=== PATIENT | female | born 1990 | race American Indian/Alaskan Native ===

== ENCOUNTER 2016-12-30 23:50 | Inpatient (IN) | payer MEDICAID ==
[2016-12-31] MEDS ORDERED: LACTATED RINGERS 1,000 ML ONE ×2 (00:06→20:55)
[2016-12-31] MEDS ORDERED: BRETHINE ONE (00:23)
[2016-12-31] MEDS ORDERED: LACTATED RINGERS 1,000 ML IV ONE ×2 (00:31→20:55)
[2016-12-31] MEDS ORDERED: CELESTONE SOLUSPAN IM ONE ×2 (00:41→00:47)
[2016-12-31] MEDS ORDERED: MAGNESIUM SULFATE 4GM/100ML 4 GM/100 ML BAG IV ONE ×2 (00:41→00:53)
[2016-12-31] MEDS ORDERED: MAGNESIUM SULFATE 40GM/1000ML 40 GM/1,000 ML BAG IV ONE (00:41)
--- NOTE | 2016-12-31 00:56 | History and Physical Report ---
History of Present Illness Date of examination: 12/31/16 Chief complaint: Contractions 2 hours History of present illness: 26-year-old at 31 weeks (via oral hx) presents with above complaints and issues, she is a drop-in patient with care at an outside facility. She complains care has been complicated by previous history of delivery 3. Gives a history of being seen by MFM, not on 17 HP. Patient also belatedly claims that she has not seen her doctor for 1-2 months now (?Dr Collette Stevenson at [facility] [place] she felt that they were not given her adequate care. This is complicated by twin gestation, patient claims they are diamniotic dichorionic. 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 denies: chlamydia, gonorrhea, hepatitis B, hepatitis C, herpes, HIV, syphilis Social history: single, full code. denies: smoking, alcohol abuse, prescription drug abuse - Obstetrical History Expected Date of Delivery: 03/04/17 Actual Gestation: 31 Week(s) 0 Day(s) : 5 Para: 3 Hx # Term Pregnancies: 0 Number of Pregnancies: 3 Medications and Allergies Allergies Allergy/AdvReac Type Severity Reaction Status Date / Time amoxicillin Allergy Hives Verified 12/31/16 00:44 butorphanol tartrate Allergy blisters Verified 12/31/16 00:59 [From Stadol] Penicillins Allergy Hives Verified 12/31/16 00:44 Home Medications Medication Instructions Recorded Confirmed Last Taken Type No Known Home Medications [No 12/31/16 12/31/16 Unknown History Reported Home Medications] Active Meds: Active Medications Betamethasone Acet/Betameth SodPhos (Celestone Soluspan) 12 mg IM ONCE ONE Stop: 12/31/16 00:48 Lactated Ringer's (Lactated Ringers) 1,000 mls @ 999 mls/hr IV BOLUS ONE Stop: 12/31/16 01:31 Terbutaline Sulfate (Brethine) 0.25 mg SUB-Q Q20MIN TERENCE Stop: 01/02/17 01:01 Review of Systems Constitutional: no fever, no chills, no sweats Cardiovascular: no chest pain, no orthopnea, no edema, no syncope, no lightheadedness, no shortness of breath, no dyspnea on exertion, no paroxysmal nocturnal dyspnea Respiratory: no excessive sputum, no shortness of breath, no dyspnea on exertion Gastrointestinal: abdominal pain (painful contractions), no vomiting, no diarrhea Genitourinary: no vaginal bleeding, no vaginal discharge, no leakage of fluid - Vital Signs Vital signs: Vital Signs Pulse Pulse Ox 163 H 76 L 12/30/16 23:59 12/30/16 23:59 Temp Pulse Resp BP Pulse Ox 112 H 128/71 100 12/31/16 00:35 12/31/16 00:12 12/31/16 00:35 - Physical Exam Cardiovascular: Regular rate, Normal S1, Normal S2 Lungs: Positive: Clear to auscultation, Normal air movement Abdomen: Positive: normal appearance, soft. Negative: distention, tenderness, guarding, rigidity Genitourinary (Female): Positive: normal external genitalia Uterus: Positive: enlarged (EFW ~ 3200) Adnexa: both: normal - Obstetrical FHR: category 1 (x 2) Cervical Dilatation: 3 Results Result Diagrams: 12/31/16 00:30 All other labs normal. Assessment and Plan A: 26-year-old at 31 weeks with contractions -Di Di twins P: -Sono for presentation -Magnesium tocolysis -Celestone course -Labs including UDS, routine and -Consent signed for possible - Patient Problems (1) 31 weeks gestation of Current Visit: Yes Status: Acute (2) Twin gestation in third trimester Current Visit: Yes Status: Acute Qualifiers: Multiple gestation type: M (3) contractions Current Visit: Yes Status: Acute (4) Limited care Current Visit: Yes Status: Acute Qualifiers: Trimester: T
[2016-12-31] MEDS ORDERED: BRETHINE SUB-Q SCH (01:00)
[2016-12-31 01:02] LABS: Urine Drugs of Abuse Note Disclamer
[2016-12-31] MEDS: MAGNESIUM SULFATE 40GM/1000ML 40 GM/1,000 ML BAG IV SCH ×2 (01:11→21:01)
[2016-12-31] MEDS ORDERED: SUBLIMAZE ONE (01:27)
[2016-12-31] MEDS ORDERED: SUBLIMAZE IV ONE (01:36)
[2016-12-31 01:46] LABS: Hematocrit 32.5 % (30.3-42.9); Hemoglobin 10.8 gm/dl (10.1-14.3); Mean Corpuscular HGB Conc 33 % (30-34); Mean Corpuscular Hemoglobin 29 pg (28-32); Mean Corpuscular Volume 89 fl (79-97); Platelet Count 137 K/mm3 (140-440); Red Blood Count 3.66 M/mm3 (3.65-5.03); Red Cell Distribution Width 12.9 % (13.2-15.2); White Blood Count 12.2 K/mm3 (4.5-11.0)
[2016-12-31 01:50] LABS: Bilirubin,Urine NEG (Negative); Blood,Urine SM (Negative); Ketones,Urine NEG (Negative); Leukocyte Esterase,Urine NEG (Negative); Mucus,Urine FEW /HPF; Nitrite,Urine NEG (Negative); Urobilinogen,Urine < 2.0 mg/dL (<2.0)
[2016-12-31 02:12] LABS: HIV-1 Antigen p24 Non React (Non React); HIVR-1/2 Ab Non React (Non React)
[2016-12-31] MEDS ORDERED: LACTATED RINGERS 1,000 ML IV SCH (03:00)
[2016-12-31] MEDS: SUBLIMAZE IV PRN ×5 (03:53→21:28)
--- NOTE | 2016-12-31 06:21 | Progress Note ---
Assessment and Plan A: 26-year-old at 31 weeks with contractions -Cat 1 tracing x 2 Issues -Di Di twins -s/p BMZ # 1 (00:40 on 12/31/16) -Breech/Breech presentation -Limited care P: -NPO for now -Expectant management for now (at least until ~ 12 hrs after BMZ shot) -Has been consented for - Patient Problems (1) 31 weeks gestation of Current Visit: Yes Status: Acute (2) Twin gestation in third trimester Current Visit: Yes Status: Acute Qualifiers: Multiple gestation type: M (3) contractions Current Visit: Yes Status: Acute (4) Limited care Current Visit: Yes Status: Acute Qualifiers: Trimester: T Subjective - Subjective Date of service: 12/31/16 Principal diagnosis: Di Di twins at 31+0 wks, PTL Interval history: Patient currently on magnesium per protocol, still having contractions but exam unchanged at 3-4 cm with posterior cervix Patient reports: new complaints, movement normal, contractions, no loss of fluid, no vaginal bleeding Objective - Vital Signs Vital Signs: Vital Signs - 12hr 12/30/16 12/31/16 12/31/16 23:59 00:12 00:35 Temperature Pulse Rate 163 H 109 H 112 H Respiratory Rate Blood Pressure 128/71 O2 Sat by Pulse 76 L 100 Oximetry 12/31/16 12/31/16 12/31/16 00:51 00:53 01:06 Temperature 98.4 F Pulse Rate 110 H 112 H Respiratory 16 Rate Blood Pressure 135/72 137/63 O2 Sat by Pulse Oximetry 12/31/16 12/31/16 12/31/16 01:21 01:35 01:39 Temperature Pulse Rate 118 H 110 H 112 H Respiratory Rate Blood Pressure 145/79 124/65 O2 Sat by Pulse 96 Oximetry 12/31/16 12/31/16 12/31/16 01:40 01:44 01:45 Temperature Pulse Rate 113 H 122 H Respiratory 20 Rate Blood Pressure O2 Sat by Pulse 97 97 Oximetry 12/31/16 12/31/16 12/31/16 01:50 01:55 02:00 Temperature Pulse Rate 106 H 119 H 105 H Respiratory Rate Blood Pressure O2 Sat by Pulse 97 98 96 Oximetry 12/31/16 12/31/16 12/31/16 02:05 02:10 02:15 Temperature Pulse Rate 106 H 113 H 107 H Respiratory Rate Blood Pressure O2 Sat by Pulse 99 100 99 Oximetry 12/31/16 12/31/16 12/31/16 02:20 02:23 02:25 Temperature Pulse Rate 109 H 95 H Respiratory 18 Rate Blood Pressure O2 Sat by Pulse 100 100 Oximetry 12/31/16 12/31/16 12/31/16 02:30 02:35 02:40 Temperature Pulse Rate 102 H 103 H 107 H Respiratory Rate Blood Pressure O2 Sat by Pulse 100 100 100 Oximetry 12/31/16 12/31/16 12/31/16 02:45 02:50 02:55 Temperature Pulse Rate 104 H 99 H 95 H Respiratory Rate Blood Pressure O2 Sat by Pulse 100 100 98 Oximetry 12/31/16 12/31/16 12/31/16 02:57 03:00 03:05 Temperature Pulse Rate 96 H 102 H 106 H Respiratory Rate Blood Pressure 117/71 O2 Sat by Pulse 98 99 Oximetry 12/31/16 12/31/16 12/31/16 03:10 03:15 03:20 Temperature Pulse Rate 96 H 103 H 96 H Respiratory Rate Blood Pressure O2 Sat by Pulse 98 97 99 Oximetry 12/31/16 12/31/16 12/31/16 03:25 03:30 03:35 Temperature Pulse Rate 101 H 102 H 104 H Respiratory Rate Blood Pressure O2 Sat by Pulse 97 96 99 Oximetry 12/31/16 12/31/16 12/31/16 03:40 03:45 03:50 Temperature Pulse Rate 96 H 99 H 95 H Respiratory Rate Blood Pressure O2 Sat by Pulse 100 99 98 Oximetry 12/31/16 12/31/16 12/31/16 03:55 03:56 04:00 Temperature Pulse Rate 96 H 98 H 102 H Respiratory Rate Blood Pressure 104/57 O2 Sat by Pulse 99 99 Oximetry 12/31/16 12/31/16 12/31/16 04:05 04:10 04:15 Temperature 98.1 F Pulse Rate 98 H 94 H 86 Respiratory 20 Rate Blood Pressure O2 Sat by Pulse 99 100 100 Oximetry 12/31/16 12/31/16 12/31/16 04:20 04:25 04:30 Temperature Pulse Rate 85 87 92 H Respiratory Rate Blood Pressure O2 Sat by Pulse 98 98 96 Oximetry 12/31/16 12/31/16 12/31/16 04:34 04:35 04:40 Temperature Pulse Rate 92 H 92 H 88 Respiratory Rate Blood Pressure O2 Sat by Pulse 94 95 97 Oximetry 12/31/16 12/31/16 12/31/16 04:45 04:50 04:55 Temperature Pulse Rate 92 H 92 H 90 Respiratory Rate Blood Pressure O2 Sat by Pulse 95 95 94 Oximetry 12/31/16 12/31/16 12/31/16 04:57 05:00 05:05 Temperature Pulse Rate 90 89 89 Respiratory Rate Blood Pressure 111/69 O2 Sat by Pulse 97 98 Oximetry 12/31/16 12/31/16 12/31/16 05:10 05:15 05:20 Temperature Pulse Rate 98 H 89 83 Respiratory 18 Rate Blood Pressure O2 Sat by Pulse 98 98 97 Oximetry 12/31/16 12/31/16 12/31/16 05:25 05:30 05:35 Temperature Pulse Rate 97 H 85 94 H Respiratory Rate Blood Pressure O2 Sat by Pulse 99 98 100 Oximetry 12/31/16 12/31/16 12/31/16 05:40 05:45 05:50 Temperature Pulse Rate 83 82 91 H Respiratory Rate Blood Pressure O2 Sat by Pulse 100 100 98 Oximetry 12/31/16 12/31/16 12/31/16 05:55 05:59 06:00 Temperature Pulse Rate 94 H 82 81 Respiratory 18 Rate Blood Pressure 118/78 O2 Sat by Pulse 100 100 Oximetry 12/31/16 12/31/16 12/31/16 06:05 06:09 06:10 Temperature Pulse Rate 94 H 85 80 Respiratory Rate Blood Pressure O2 Sat by Pulse 98 94 95 Oximetry - Exam FHR: category 1 (x 2) Cervical Dilatation: 3.5 - Labs Labs: Abnormal Labs 12/31/16 12/31/16 00:30 05:36 WBC 12.2 H RDW 12.9 L Plt Count 137 L Magnesium 4.50 H Laboratory Results - last 24 hr 12/31/16 12/31/16 12/31/16 00:30 00:30 00:30 WBC 12.2 H RBC 3.66 Hgb 10.8 Hct 32.5 MCV 89 MCH 29 MCHC 33 RDW 12.9 L Plt Count 137 L Magnesium Urine Color Yellow Urine Turbidity Clear Urine pH 7.0 Ur Specific Henderson 1.012 Urine Protein 100 mg/dl Urine Glucose (UA) Neg Urine Ketones Neg Urine Blood Sm Urine Nitrite Neg Urine Bilirubin Neg Urine Urobilinogen < 2.0 Ur Leukocyte Esterase Neg Urine WBC (Auto) 1.0 Urine RBC (Auto) 8.0 U Epithel Cells (Auto) 1.0 Amorphous Crystals Few Urine Mucus Few Urine Opiates Screen Urine Methadone Screen Ur Barbiturates Screen Ur Phencyclidine Scrn Ur Amphetamines Screen U Benzodiazepines Scrn Urine Cocaine Screen U Marijuana (THC) Screen Drugs of Abuse Note Hepatitis C Antibody HIV 1&2 Antibody Rapid HIV P24 Antigen Rubella IgG Antibody Fibronectin Positive Blood Type 12/31/16 12/31/16 12/31/16 00:30 00:30 00:30 WBC RBC Hgb Hct MCV MCH MCHC RDW Plt Count Magnesium Urine Color Urine Turbidity Urine pH Ur Specific Henderson Urine Protein Urine Glucose (UA) Urine Ketones Urine Blood Urine Nitrite Urine Bilirubin Urine Urobilinogen Ur Leukocyte Esterase Urine WBC (Auto) Urine RBC (Auto) U Epithel Cells (Auto) Amorphous Crystals Urine Mucus Urine Opiates Screen Presumptive negative Urine Methadone Screen Presumptive negative Ur Barbiturates Screen Presumptive negative Ur Phencyclidine Scrn Presumptive negative Ur Amphetamines Screen Presumptive negative U Benzodiazepines Scrn Presumptive negative Urine Cocaine Screen Presumptive negative U Marijuana (THC) Screen Presumptive negative Drugs of Abuse Note Disclamer Hepatitis C Antibody Non-reactive HIV 1&2 Antibody Rapid Non react HIV P24 Antigen Non react Rubella IgG Antibody Immune Fibronectin Blood Type 12/31/16 12/31/16 00:30 05:36 WBC RBC Hgb Hct MCV MCH MCHC RDW Plt Count Magnesium 4.50 H Urine Color Urine Turbidity Urine pH Ur Specific Henderson Urine Protein Urine Glucose (UA) Urine Ketones Urine Blood Urine Nitrite Urine Bilirubin Urine Urobilinogen Ur Leukocyte Esterase Urine WBC (Auto) Urine RBC (Auto) U Epithel Cells (Auto) Amorphous Crystals Urine Mucus Urine Opiates Screen Urine Methadone Screen Ur Barbiturates Screen Ur Phencyclidine Scrn Ur Amphetamines Screen U Benzodiazepines Scrn Urine Cocaine Screen U Marijuana (THC) Screen Drugs of Abuse Note Hepatitis C Antibody HIV 1&2 Antibody Rapid HIV P24 Antigen Rubella IgG Antibody Fibronectin Blood Type O POSITIVE
[2016-12-31] MEDS ORDERED: TYLENOL PO PRN (06:23)
[2016-12-31] MEDS ORDERED: ZOFRAN IV PRN (06:23)
[2016-12-31] MEDS ORDERED: COLACE PO PRN (06:23)
[2016-12-31] MEDS ORDERED: MILK OF MAGNESIA PO PRN (06:23)
[2016-12-31 06:27] LABS: Basophils % (Manual) 0 % (0.0-1.8); Blastocytes % (Manual) 0 %
[2016-12-31 06:28] LABS: Anisocytosis RARE; Diff Status Complete
--- NOTE | 2016-12-31 08:16 | Ultrasound Report ---
ULTRASOUND OB FOLLOWUP ULTRASOUND OB FOLLOWUP ADD GESTATION HISTORY: Twin gestation, labor, no care TECHNIQUE: Transabdominal ultrasound with Doppler interrogation. FINDINGS: Gestation: Twin A Position: Breech Amniotic Fluid: Normal JOHN = 4.7 cm largest vertical pocket Placenta: Posterior Placental Grade: 1 Heart Rate: 145 BPM Cervical length: 2.7 cm (Normal > 3 cm) BPD: 8.0 cm = 32 w 1 d HC: 29.2 cm = 32 w 1 d AC: 27.0 cm = 31 w 0 d FL: 6.2 cm = 32 w 0 d HC/AC Ratio: 1.08 Estimated Weight: 1780 grams US Gest. Age = 31 w 5 d EDC: 02/27/17 Gestation: Twin B Position: Breech Amniotic Fluid: Normal JOHN = 2.5 cm largest vertical pocket Placenta: Anterior Placental Grade: 1 Heart Rate: 168 BPM Cervical length: 2.7 cm (Normal > 3 cm) BPD: 7.6 cm = 30 w 3 d HC: 28.3 cm = 31 w 0 d AC: 27 cm = 31 w 0 d FL: 5.8 cm = 30 w 1 d HC/AC Ratio: 1.05 Estimated Weight: 1629 grams US Gest. Age = 30 w 4 d EDC: 03/07/17
[2016-12-31] MEDS ORDERED: DILAUDID IV PRN (09:00)
[2016-12-31] MEDS: D5LR 1,000 ML IV SCH ×2 (09:01→19:59)
[2016-12-31] MEDS: PRENATAL VITAMIN PO SCH (11:36)
--- NOTE | 2016-12-31 12:40 | Consultation ---
History of Present Illness Reason for consult: contractions (26-year-old at 31.3 weeks presented on 12/31/16 with contractions. Patient followed by [facility] for DI/DI twin gestation and history of PTD x 3. Of note we have note seen patient since . Reported that last SVE performed by [facility] staff was 3 cm. Patient reports AFM x 2 and decreased contractions since MgSO4 . 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 denies: chlamydia, gonorrhea, hepatitis B, hepatitis C, herpes, HIV, syphilis - Obstetrical History : 5 Medications and Allergies Allergies Allergy/AdvReac Type Severity Reaction Status Date / Time amoxicillin Allergy Hives Verified 12/31/16 00:44 butorphanol tartrate Allergy blisters Verified 12/31/16 00:59 [From Stadol] Penicillins Allergy Hives Verified 12/31/16 00:44 Home Medications Medication Instructions Recorded Confirmed Last Taken Type No Known Home Medications [No 12/31/16 12/31/16 Unknown History Reported Home Medications] Active Meds: Active Medications Acetaminophen (Tylenol) 650 mg PO Q4H PRN PRN Reason: Pain MILD(1-3)/Fever >100.5/BYRNE Al Hydrox/Mg Hydrox/Simethicone (Alum-Mag Hydrox-Simeth [id number]/5ml) 30 ml PO Q6H PRN PRN Reason: Indigestion Docusate Sodium (Colace) 100 mg PO Q12H PRN PRN Reason: Constipation Fentanyl (Sublimaze) 100 mcg IV Q2H PRN PRN Reason: Labor Pain Last Admin: 12/31/16 11:40 Dose: 100 mcg Hydromorphone HCl (Dilaudid) 0.5 mg IV Q2H PRN PRN Reason: Pain , Severe (7-10) Magnesium Sulfate (Magnesium Sulfate 40gm/1000ml) 40 gm in 1,000 mls @ 50 mls/ hr IV DIRECT TERENCE PRN Reason: 2 GM/HR Last Admin: 12/31/16 01:11 Dose: 2 gm/hr, 50 mls/hr Dextrose/Lactated Ringer's (D5lr) 1,000 mls @ 125 mls/hr IV DIRECT TERENCE Last Admin: 12/31/16 09:01 Dose: 125 mls/hr Magnesium Hydroxide (Milk Of Magnesia) 30 ml PO QHS PRN PRN Reason: Laxative Effect Multivitamins/Iron/Calcium ( Vitamin) 1 each PO QDAY [facility] Last Admin: 12/31/16 11:36 Dose: 1 each Ondansetron HCl (Zofran) 4 mg IV Q6H PRN PRN Reason: Nausea And Vomiting Terbutaline Sulfate (Brethine) 0.25 mg SUB-Q Q20MIN [facility] Stop: 01/02/17 01:01 Last Admin: 12/31/16 00:25 Dose: 0.25 mg Review of Systems Constitutional: no fever, no chills, no night sweats Ears, nose, mouth and throat: no vertigo Cardiovascular: no chest pain, no orthopnea, no palpitations, no shortness of breath Respiratory: no cough, no shortness of breath Gastrointestinal: no abdominal pain Genitourinary: no vaginal bleeding, no vaginal discharge, no leakage of fluid Rectal Exam: deferred Musculoskeletal: no arm numbness/tingling Integumentary: no rash Neurological: no seizures, no syncope Psychiatric: no depression Endocrine: no palpatations Hematologic/Lymphatic: no easy bruising, no easy bleeding - Vital Signs Vital signs: Vital Signs Pulse Pulse Ox 163 H 76 L 12/30/16 23:59 12/30/16 23:59 Temp Pulse Resp BP Pulse Ox 97.8 F 86 20 116/63 98 12/31/16 07:00 12/31/16 11:57 12/31/16 11:40 12/31/16 11:57 12/31/16 10:23 - Physical Exam Breasts: Positive: deferred Cardiovascular: Regular rate Lungs: Positive: Clear to auscultation, Normal air movement Abdomen: Negative: tenderness Uterus: Positive: other (gravid ). Negative: tender Extremities: Positive: normal, edema (trace) Deep Tendon Reflex Grade: Normal +2 - Obstetrical FHR: category 1 (times 2 ) Uterine Contraction Monitor Mode: External Uterine Contraction Pattern: Irregular Uterine Contraction Intensity: Mild Results Result Diagrams: 12/31/16 00:30 Abnormal lab results 12/31/16 12/31/16 Range/Units 00:30 05:36 WBC 12.2 H (4.5-11.0) K/mm3 RDW 12.9 L (13.2-15.2) % Plt Count 137 L (140-440) K/mm3 Monocytes % (Manual) 8.0 H (0.0-7.3) % Eosinophils % (Manual) 5.0 H (0.0-4.3) % Seg Neutrophils # Man 8.2 H (1.8-7.7) K/mm3 Monocytes # (Manual) 1.0 H (0.0-0.8) K/mm3 Eosinophils # (Manual) 0.6 H (0.0-0.4) K/mm3 Magnesium 4.50 H (1.7-2.3) mg/dL All other labs normal. Ultrasound: report reviewed (12/31/16 [facility] US DI/DI twin gestation Cervical length of 2.7 cm Twin A: 31.5 wks + FHT of 145 Breech presentation EFW 1780 gm ( 55%) MVP 4.7 cm and Twin B : 30.4 weeks EFW 1629 gm ( 30%) BREECH presentation MVP 2.5 cm + FHT of 168 ) Assessment and Plan A) 1. IUP at 31.3 weeks 2. DI/DI twin gestation 3. History of PTD times 3 4. Advanced cervical length of 3 cm 5. Shortened cervical length assessment noted- 2.7 cm 6. Non compliant with [facility] appointments -last seen 11/02/16 7. BREECH/BREECH presentation 8. MgSO4 and BMZ in progress 9. History of infant with congenital stenosis 10. Positive FFN 11. PLT [id number] P) 1. Continue in patient management 2. Doppler study ordered for Twin A and Twin B 3. Complete BMZ 4. Continue MgSO4 24 hrs after 2nd dose of BMZ 5. Document GTT screen 6. Follow up on ordered cultures and treat if positive 7. Delivery SVE > 5 cm , regular ctx not responsive to tocolytic regimen , /maternal compromise
--- NOTE | 2016-12-31 15:14 | Progress Note ---
Assessment and Plan - Patient Problems (1) 31 weeks gestation of Onset Date: 12/31/16 Current Visit: Yes Status: Acute Plan to address problem: A) 1. IUP at 31.3 weeks 2. DI/DI twin gestation 3. History of PTD times 3 4. Advanced cervical length of 3 cm 5. Shortened cervical length assessment noted- 2.7 cm 6. Non compliant with [facility] appointments -last seen 11/02/16 7. BREECH/BREECH presentation 8. MgSO4 in progress 9. Betamethasone completed 10. Positive FFN 11. PLT 137K P) Appreciate [facility] consultation 1. Continue in patient management 2. Doppler study ordered for Twin A and Twin B 3. Complete BMZ 4. Continue MgSO4 24 hrs after 2nd dose of BMZ 5. Document GTT screen 6. Follow up on ordered cultures and treat if positive 7. Delivery SVE > 5 cm , regular ctx not responsive to tocolytic regimen , /maternal compromise (2) contractions Onset Date: 12/31/16 Current Visit: Yes Status: Acute (3) Twin gestation in third trimester Onset Date: 12/31/16 Current Visit: Yes Status: Acute Qualifiers: Multiple gestation type: dichorionic and diamniotic Qualified Code(s): O30.043 - Twin , dichorionic/diamniotic, third trimester Subjective - Subjective Date of service: 12/31/16 Principal diagnosis: IUP @ 31 2/7 weeks; Twin gestation (Di/Di); PTL; Breech Interval history: Pt is feeling better now that contractions have spaced out. Currently on magnesium sulfate 2gm/hr and received 2nd dose of Betamethasone. +FM No bleeding. Patient reports: new complaints, movement normal, contractions, no loss of fluid, no vaginal bleeding Objective - Vital Signs Vital Signs: Vital Signs - 12hr 12/31/16 12/31/16 12/31/16 03:15 03:20 03:25 Temperature Pulse Rate 103 H 96 H 101 H Respiratory Rate Blood Pressure O2 Sat by Pulse 97 99 97 Oximetry 12/31/16 12/31/16 12/31/16 03:30 03:35 03:40 Temperature Pulse Rate 102 H 104 H 96 H Respiratory Rate Blood Pressure O2 Sat by Pulse 96 99 100 Oximetry 12/31/16 12/31/16 12/31/16 03:45 03:50 03:55 Temperature Pulse Rate 99 H 95 H 96 H Respiratory Rate Blood Pressure O2 Sat by Pulse 99 98 99 Oximetry 12/31/16 12/31/16 12/31/16 03:56 04:00 04:05 Temperature 98.1 F Pulse Rate 98 H 102 H 98 H Respiratory 20 Rate Blood Pressure 104/57 O2 Sat by Pulse 99 99 Oximetry 12/31/16 12/31/16 12/31/16 04:10 04:15 04:20 Temperature Pulse Rate 94 H 86 85 Respiratory Rate Blood Pressure O2 Sat by Pulse 100 100 98 Oximetry 12/31/16 12/31/16 12/31/16 04:25 04:30 04:34 Temperature Pulse Rate 87 92 H 92 H Respiratory Rate Blood Pressure O2 Sat by Pulse 98 96 94 Oximetry 12/31/16 12/31/16 12/31/16 04:35 04:40 04:45 Temperature Pulse Rate 92 H 88 92 H Respiratory Rate Blood Pressure O2 Sat by Pulse 95 97 95 Oximetry 12/31/16 12/31/16 12/31/16 04:50 04:55 04:57 Temperature Pulse Rate 92 H 90 90 Respiratory Rate Blood Pressure 111/69 O2 Sat by Pulse 95 94 Oximetry 12/31/16 12/31/16 12/31/16 05:00 05:05 05:10 Temperature Pulse Rate 89 89 98 H Respiratory Rate Blood Pressure O2 Sat by Pulse 97 98 98 Oximetry 12/31/16 12/31/16 12/31/16 05:15 05:20 05:25 Temperature Pulse Rate 89 83 97 H Respiratory 18 Rate Blood Pressure O2 Sat by Pulse 98 97 99 Oximetry 12/31/16 12/31/16 12/31/16 05:30 05:35 05:40 Temperature Pulse Rate 85 94 H 83 Respiratory Rate Blood Pressure O2 Sat by Pulse 98 100 100 Oximetry 12/31/16 12/31/16 12/31/16 05:45 05:50 05:55 Temperature Pulse Rate 82 91 H 94 H Respiratory Rate Blood Pressure O2 Sat by Pulse 100 98 100 Oximetry 12/31/16 12/31/16 12/31/16 05:59 06:00 06:05 Temperature Pulse Rate 82 81 94 H Respiratory 18 Rate Blood Pressure 118/78 O2 Sat by Pulse 100 98 Oximetry 12/31/16 12/31/16 12/31/16 06:09 06:10 06:15 Temperature Pulse Rate 85 80 79 Respiratory Rate Blood Pressure O2 Sat by Pulse 94 95 96 Oximetry 12/31/16 12/31/16 12/31/16 06:20 06:26 06:38 Temperature Pulse Rate 82 88 79 Respiratory Rate Blood Pressure O2 Sat by Pulse 96 99 99 Oximetry 12/31/16 12/31/16 12/31/16 06:41 06:43 06:48 Temperature Pulse Rate 85 79 85 Respiratory Rate Blood Pressure O2 Sat by Pulse 78 L 96 96 Oximetry 12/31/16 12/31/16 12/31/16 06:51 06:53 06:58 Temperature Pulse Rate 79 79 81 Respiratory Rate Blood Pressure 110/69 O2 Sat by Pulse 94 96 96 Oximetry 12/31/16 12/31/16 12/31/16 07:00 07:03 07:08 Temperature 97.8 F Pulse Rate 80 82 Respiratory 18 Rate Blood Pressure O2 Sat by Pulse 96 96 Oximetry 12/31/16 12/31/16 12/31/16 07:13 07:18 07:23 Temperature Pulse Rate 90 101 H 80 Respiratory Rate Blood Pressure O2 Sat by Pulse 97 97 95 Oximetry 12/31/16 12/31/16 12/31/16 07:28 07:29 07:33 Temperature Pulse Rate 81 95 H 79 Respiratory Rate Blood Pressure O2 Sat by Pulse 95 94 94 Oximetry 12/31/16 12/31/16 12/31/16 07:35 07:38 07:40 Temperature Pulse Rate 83 82 83 Respiratory Rate Blood Pressure O2 Sat by Pulse 94 94 94 Oximetry 12/31/16 12/31/16 12/31/16 07:43 07:46 07:48 Temperature Pulse Rate 85 95 H 92 H Respiratory Rate Blood Pressure O2 Sat by Pulse 94 91 95 Oximetry 12/31/16 12/31/16 12/31/16 07:53 07:57 07:58 Temperature Pulse Rate 91 H 82 84 Respiratory Rate Blood Pressure 115/73 O2 Sat by Pulse 95 96 Oximetry 12/31/16 12/31/16 12/31/16 08:03 08:08 08:13 Temperature Pulse Rate 82 85 93 H Respiratory Rate Blood Pressure O2 Sat by Pulse 97 96 95 Oximetry 12/31/16 12/31/16 12/31/16 08:16 08:18 08:23 Temperature Pulse Rate 101 H 85 89 Respiratory Rate Blood Pressure O2 Sat by Pulse 92 97 96 Oximetry 12/31/16 12/31/16 12/31/16 08:28 08:33 08:38 Temperature Pulse Rate 86 101 H 81 Respiratory Rate Blood Pressure O2 Sat by Pulse 98 96 98 Oximetry 12/31/16 12/31/16 12/31/16 08:43 08:48 08:51 Temperature Pulse Rate 86 88 95 H Respiratory Rate Blood Pressure O2 Sat by Pulse 98 96 94 Oximetry 12/31/16 12/31/16 12/31/16 08:53 08:56 08:57 Temperature Pulse Rate 78 80 84 Respiratory Rate Blood Pressure 96/53 O2 Sat by Pulse 96 94 Oximetry 12/31/16 12/31/16 12/31/16 08:58 09:03 09:08 Temperature Pulse Rate 102 H 79 81 Respiratory Rate Blood Pressure O2 Sat by Pulse 95 95 97 Oximetry 12/31/16 12/31/16 12/31/16 09:13 09:15 09:18 Temperature Pulse Rate 79 85 79 Respiratory Rate Blood Pressure O2 Sat by Pulse 95 94 95 Oximetry 12/31/16 12/31/16 12/31/16 09:20 09:23 09:27 Temperature Pulse Rate 81 81 79 Respiratory Rate Blood Pressure O2 Sat by Pulse 94 95 94 Oximetry 12/31/16 12/31/16 12/31/16 09:28 09:32 09:33 Temperature Pulse Rate 83 82 89 Respiratory Rate Blood Pressure O2 Sat by Pulse 95 94 96 Oximetry 12/31/16 12/31/16 12/31/16 09:38 09:43 09:48 Temperature Pulse Rate 89 81 80 Respiratory Rate Blood Pressure O2 Sat by Pulse 96 95 97 Oximetry 12/31/16 12/31/16 12/31/16 09:53 09:56 09:58 Temperature Pulse Rate 86 85 80 Respiratory Rate Blood Pressure 102/63 O2 Sat by Pulse 96 96 Oximetry 12/31/16 12/31/16 12/31/16 09:59 10:03 10:08 Temperature Pulse Rate 86 78 79 Respiratory Rate Blood Pressure O2 Sat by Pulse 94 96 97 Oximetry 12/31/16 12/31/16 12/31/16 10:13 10:18 10:23 Temperature Pulse Rate 82 87 89 Respiratory Rate Blood Pressure O2 Sat by Pulse 95 95 98 Oximetry 12/31/16 12/31/16 12/31/16 10:57 11:40 11:57 Temperature Pulse Rate 81 86 Respiratory 20 Rate Blood Pressure 116/72 116/63 O2 Sat by Pulse Oximetry 12/31/16 12/31/16 12/31/16 12:57 13:57 14:56 Temperature Pulse Rate 82 81 98 H Respiratory Rate Blood Pressure 92/54 101/57 156/72 O2 Sat by Pulse Oximetry - Exam Abdomen: Present: normal appearance, soft Uterus: Present: normal FHR: category 1 Uterine Contraction Monitor Mode: External Uterine Contraction Pattern: Irregular Uterine Contraction Intensity: Mild - Labs Labs: Abnormal Labs 12/31/16 12/31/16 12/31/16 00:30 05:36 12:36 WBC 12.2 H RDW 12.9 L Plt Count 137 L Monocytes % (Manual) 8.0 H Eosinophils % (Manual) 5.0 H Seg Neutrophils # Man 8.2 H Monocytes # (Manual) 1.0 H Eosinophils # (Manual) 0.6 H Magnesium 4.50 H 5.10 H Laboratory Results - last 24 hr 12/31/16 12/31/16 12/31/16 00:30 00:30 00:30 WBC 12.2 H RBC 3.66 Hgb 10.8 Hct 32.5 MCV 89 MCH 29 MCHC 33 RDW 12.9 L Plt Count 137 L Add Manual Diff Complete Total Counted 100 Seg Neuts % (Manual) 67.0 Band Neutrophils % 0 Lymphocytes % (Manual) 18.0 Reactive Lymphs % (Man) 0 Monocytes % (Manual) 8.0 H Eosinophils % (Manual) 5.0 H Basophils % (Manual) 0 Metamyelocytes % 2.0 Myelocytes % 0 Promyelocytes % 0 Blast Cells % 0 Nucleated RBC % Not Reportable Seg Neutrophils # Man 8.2 H Band Neutrophils # 0.0 Lymphocytes # (Manual) 2.2 Abs React Lymphs (Man) 0.0 Monocytes # (Manual) 1.0 H Eosinophils # (Manual) 0.6 H Basophils # (Manual) 0.0 Metamyelocytes # 0.2 Myelocytes # 0.0 Promyelocytes # 0.0 Blast Cells # 0.0 WBC Morphology Not Reportable Hypersegmented Neuts Not Reportable Hyposegmented Neuts Not Reportable Hypogranular Neuts Not Reportable Smudge Cells Not Reportable Toxic Granulation Not Reportable Toxic Vacuolation Not Reportable Dohle Bodies Not Reportable Pelger-Huet Anomaly Not Reportable Codey Rods Not Reportable Platelet Estimate Appears normal Clumped Platelets Not Reportable Plt Clumps, EDTA Not Reportable Large Platelets Not Reportable Giant Platelets Not Reportable Platelet Satelliting Not Reportable Plt Morphology Comment Not Reportable RBC Morphology Not Reportable Dimorphic RBCs Not Reportable Polychromasia Not Reportable Hypochromasia Not Reportable Poikilocytosis Not Reportable Anisocytosis Rare Microcytosis Not Reportable Macrocytosis Not Reportable Spherocytes Not Reportable Pappenheimer Bodies Not Reportable Sickle Cells Not Reportable Target Cells Not Reportable Tear Drop Cells Not Reportable Ovalocytes Not Reportable Helmet Cells Not Reportable [place] Bodies Not Reportable [place] Rings Not Reportable [place] Cells Not Reportable Bite Cells Not Reportable Crenated Cell Not Reportable Elliptocytes Not Reportable Acanthocytes (Spur) Not Reportable Rouleaux Not Reportable Hemoglobin C Crystals Not Reportable Schistocytes Not Reportable Malaria parasites Not Reportable Jonatan Bodies Not Reportable Hem Pathologist Commnt No Magnesium Urine Color Yellow Urine Turbidity Clear Urine pH 7.0 Ur Specific [place] 1.012 Urine Protein 100 mg/dl Urine Glucose (UA) Neg Urine Ketones Neg Urine Blood Sm Urine Nitrite Neg Urine Bilirubin Neg Urine Urobilinogen < 2.0 Ur Leukocyte Esterase Neg Urine WBC (Auto) 1.0 Urine RBC (Auto) 8.0 U Epithel Cells (Auto) 1.0 Amorphous Crystals Few Urine Mucus Few Urine Opiates Screen Urine Methadone Screen Ur Barbiturates Screen Ur Phencyclidine Scrn Ur Amphetamines Screen U Benzodiazepines Scrn Urine Cocaine Screen U Marijuana (THC) Screen Drugs of Abuse Note RPR Hepatitis C Antibody HIV 1&2 Antibody Rapid HIV P24 Antigen Rubella IgG Antibody Fibronectin Positive Blood Type 12/31/16 12/31/16 12/31/16 00:30 00:30 00:30 WBC RBC Hgb Hct MCV MCH MCHC RDW Plt Count Add Manual Diff Total Counted Seg Neuts % (Manual) Band Neutrophils % Lymphocytes % (Manual) Reactive Lymphs % (Man) Monocytes % (Manual) Eosinophils % (Manual) Basophils % (Manual) Metamyelocytes % Myelocytes % Promyelocytes % Blast Cells % Nucleated RBC % Seg Neutrophils # Man Band Neutrophils # Lymphocytes # (Manual) Abs React Lymphs (Man) Monocytes # (Manual) Eosinophils # (Manual) Basophils # (Manual) Metamyelocytes # Myelocytes # Promyelocytes # Blast Cells # WBC Morphology Hypersegmented Neuts Hyposegmented Neuts Hypogranular Neuts Smudge Cells Toxic Granulation Toxic Vacuolation Dohle Bodies Pelger-Huet Anomaly Codey Rods Platelet Estimate Clumped Platelets Plt Clumps, EDTA Large Platelets Giant Platelets Platelet Satelliting Plt Morphology Comment RBC Morphology Dimorphic RBCs Polychromasia Hypochromasia Poikilocytosis Anisocytosis Microcytosis Macrocytosis Spherocytes Pappenheimer Bodies Sickle Cells Target Cells Tear Drop Cells Ovalocytes Helmet Cells [place] Bodies [place] Rings [place] Cells Bite Cells Crenated Cell Elliptocytes Acanthocytes (Spur) Rouleaux Hemoglobin C Crystals Schistocytes Malaria parasites Jonatan Bodies Hem Pathologist Commnt Magnesium Urine Color Urine Turbidity Urine pH Ur Specific [place] Urine Protein Urine Glucose (UA) Urine Ketones Urine Blood Urine Nitrite Urine Bilirubin Urine Urobilinogen Ur Leukocyte Esterase Urine WBC (Auto) Urine RBC (Auto) U Epithel Cells (Auto) Amorphous Crystals Urine Mucus Urine Opiates Screen Presumptive negative Urine Methadone Screen Presumptive negative Ur Barbiturates Screen Presumptive negative Ur Phencyclidine Scrn Presumptive negative Ur Amphetamines Screen Presumptive negative U Benzodiazepines Scrn Presumptive negative Urine Cocaine Screen Presumptive negative U Marijuana (THC) Screen Presumptive negative Drugs of Abuse Note Disclamer RPR Nonreactive Hepatitis C Antibody Non-reactive HIV 1&2 Antibody Rapid HIV P24 Antigen Rubella IgG Antibody Immune Fibronectin Blood Type 12/31/16 12/31/16 12/31/16 00:30 00:30 05:36 WBC RBC Hgb Hct MCV MCH MCHC RDW Plt Count Add Manual Diff Total Counted Seg Neuts % (Manual) Band Neutrophils % Lymphocytes % (Manual) Reactive Lymphs % (Man) Monocytes % (Manual) Eosinophils % (Manual) Basophils % (Manual) Metamyelocytes % Myelocytes % Promyelocytes % Blast Cells % Nucleated RBC % Seg Neutrophils # Man Band Neutrophils # Lymphocytes # (Manual) Abs React Lymphs (Man) Monocytes # (Manual) Eosinophils # (Manual) Basophils # (Manual) Metamyelocytes # Myelocytes # Promyelocytes # Blast Cells # WBC Morphology Hypersegmented Neuts Hyposegmented Neuts Hypogranular Neuts Smudge Cells Toxic Granulation Toxic Vacuolation Dohle Bodies Pelger-Huet Anomaly Codey Rods Platelet Estimate Clumped Platelets Plt Clumps, EDTA Large Platelets Giant Platelets Platelet Satelliting Plt Morphology Comment RBC Morphology Dimorphic RBCs Polychromasia Hypochromasia Poikilocytosis Anisocytosis Microcytosis Macrocytosis Spherocytes Pappenheimer Bodies Sickle Cells Target Cells Tear Drop Cells Ovalocytes Helmet Cells [place] Bodies Spring Rings [place] Cells Bite Cells Crenated Cell Elliptocytes Acanthocytes (Spur) Rouleaux Hemoglobin C Crystals Schistocytes Malaria parasites Jonatan Bodies Hem Pathologist Commnt Magnesium 4.50 H Urine Color Urine Turbidity Urine pH Ur Specific [place] Urine Protein Urine Glucose (UA) Urine Ketones Urine Blood Urine Nitrite Urine Bilirubin Urine Urobilinogen Ur Leukocyte Esterase Urine WBC (Auto) Urine RBC (Auto) U Epithel Cells (Auto) Amorphous Crystals Urine Mucus Urine Opiates Screen Urine Methadone Screen Ur Barbiturates Screen Ur Phencyclidine Scrn Ur Amphetamines Screen U Benzodiazepines Scrn Urine Cocaine Screen U Marijuana (THC) Screen Drugs of Abuse Note RPR Hepatitis C Antibody HIV 1&2 Antibody Rapid Non react HIV P24 Antigen Non react Rubella IgG Antibody Fibronectin Blood Type O POSITIVE 12/31/16 12:36 WBC RBC Hgb Hct MCV MCH MCHC RDW Plt Count Add Manual Diff Total Counted Seg Neuts % (Manual) Band Neutrophils % Lymphocytes % (Manual) Reactive Lymphs % (Man) Monocytes % (Manual) Eosinophils % (Manual) Basophils % (Manual) Metamyelocytes % Myelocytes % Promyelocytes % Blast Cells % Nucleated RBC % Seg Neutrophils # Man Band Neutrophils # Lymphocytes # (Manual) Abs React Lymphs (Man) Monocytes # (Manual) Eosinophils # (Manual) Basophils # (Manual) Metamyelocytes # Myelocytes # Promyelocytes # Blast Cells # WBC Morphology Hypersegmented Neuts Hyposegmented Neuts Hypogranular Neuts Smudge Cells Toxic Granulation Toxic Vacuolation Dohle Bodies Pelger-Huet Anomaly Codey Rods Platelet Estimate Clumped Platelets Plt Clumps, EDTA Large Platelets Giant Platelets Platelet Satelliting Plt Morphology Comment RBC Morphology Dimorphic RBCs Polychromasia Hypochromasia Poikilocytosis Anisocytosis Microcytosis Macrocytosis Spherocytes Pappenheimer Bodies Sickle Cells Target Cells Tear Drop Cells Ovalocytes Helmet Cells [place] Bodies Spring Rings [place] Cells Bite Cells Crenated Cell Elliptocytes Acanthocytes (Spur) Rouleaux Hemoglobin C Crystals Schistocytes Malaria parasites Jonatan Bodies Hem Pathologist Commnt Magnesium 5.10 H Urine Color Urine Turbidity Urine pH Ur Specific [place] Urine Protein Urine Glucose (UA) Urine Ketones Urine Blood Urine Nitrite Urine Bilirubin Urine Urobilinogen Ur Leukocyte Esterase Urine WBC (Auto) Urine RBC (Auto) U Epithel Cells (Auto) Amorphous Crystals Urine Mucus Urine Opiates Screen Urine Methadone Screen Ur Barbiturates Screen Ur Phencyclidine Scrn Ur Amphetamines Screen U Benzodiazepines Scrn Urine Cocaine Screen U Marijuana (THC) Screen Drugs of Abuse Note RPR Hepatitis C Antibody HIV 1&2 Antibody Rapid HIV P24 Antigen Rubella IgG Antibody Fibronectin Blood Type
[2016-12-31 16:48] LABS: Bilirubin,Urine NEG (Negative); Blood,Urine SM (Negative); Ketones,Urine NEG (Negative); Leukocyte Esterase,Urine TR (Negative); Nitrite,Urine NEG (Negative); Protein,Urine <15 mg/dL mg/dL (Negative); Urobilinogen,Urine < 2.0 mg/dL (<2.0)
--- NOTE | 2016-12-31 17:01 | Ultrasound Report ---
BIOPHYSICAL PROFILE (TWINS): INDICATION: Twins. COMPARISON: None similar. TECHNIQUE: Transabdominal ultrasound with Doppler interrogation. BABY A: 2 - breathing movements 2 - movements 2 - posture and tone 2 - Qualitative amniotic fluid volume 8 - TOTAL SCORE OF POSSIBLE 8 Heart Rate (bpm) 138 BABY B: 2 - breathing movements 2 - movements 2 - posture and tone 2 - Qualitative amniotic fluid volume 8 - TOTAL SCORE OF POSSIBLE 8 Heart Rate (bpm) 143
[2017-01-01] MEDS ORDERED: CELESTONE SOLUSPAN IM ONE
[2017-01-01] MEDS: SUBLIMAZE IV PRN ×3 (03:37→21:50)
[2017-01-01] MEDS: ALUM-MAG HYDROX-SIMETH 200-200-20MG/5ML PO PRN (06:48)
[2017-01-01] MEDS ORDERED: PERCOCET 5/325 PO PRN (07:30)
--- NOTE | 2017-01-01 09:13 | Ultrasound Report ---
ULTRASOUND OB VELOCIMETRY UMBILICAL ARTERY - TWINS: HISTORY: Twins. COMPARISON: None similar. FINDINGS: Transabdominal imaging with spectral Doppler interrogation. 3 separate segments of the cord were evaluated. BABY A: heart rate measures 126 beats per minute. Free loop S/D ratio in the examined loops are 2.83, 2.98 and 2.47 with average S/D ratio = 2.8. Normal waveform. Flow pattern is persistent. Free loop RI in the examined loops are 0.65, 0.66 and 0.6 with average RI= 0.64. Normal waveform. Flow pattern is persistent. BABY B: heart rate measures 149 beats per minute. Free loop S/D ratio in the examined loops are 2.34, 2.31 and 2.29 with average S/D ratio = 2.31. Normal waveform. Flow pattern is persistent. Free loop RI in the examined loops are 0.57, 0.57 and 0.56 with average RI= 0.56. Normal waveform. Flow pattern is persistent. CONCLUSION: Findings, as above. Thank you for the opportunity to participate in this patient's care.
--- NOTE | 2017-01-01 09:40 | Progress Note ---
Assessment and Plan - Patient Problems (1) 31 weeks gestation of Onset Date: 12/31/16 Current Visit: Yes Status: Acute Plan to address problem: A) 1. IUP at 31 3/7 weeks 2. DI/DI twin gestation 3. History of PTD times 3 4. Advanced cervical length of 3 cm 5. Shortened cervical length assessment noted- 2.7 cm 6. Non compliant with [facility] appointments -last seen 11/02/16 7. BREECH/BREECH presentation 8. MgSO4 in progress 9. Betamethasone completed 10. Positive FFN 11. PLT 137K P) Appreciate [facility] consultation 1. Continue in patient management 2. Doppler study ordered for Twin A and Twin B - Done. WNL. 3. Completed Betamethasone 4. Continue MgSO4 24 hrs after 2nd dose of BMZ 5. Document GTT screen 6. Follow up on ordered cultures and treat if positive 7. Delivery SVE > 5 cm , regular ctx not responsive to tocolytic regimen , /maternal compromise (2) contractions Onset Date: 12/31/16 Current Visit: Yes Status: Acute (3) Twin gestation in third trimester Onset Date: 12/31/16 Current Visit: Yes Status: Acute Qualifiers: Multiple gestation type: dichorionic and diamniotic Qualified Code(s): O30.043 - Twin , dichorionic/diamniotic, third trimester Subjective - Subjective Date of service: 01/01/17 Principal diagnosis: IUP @ 31 3/7 weeks; Twin gestation (Di/Di); PTL; Breech Interval history: Pt is feeling well, contractions are occasional. Currently on magnesium sulfate 2gm/hr and received 2nd dose of Betamethasone. +FM No bleeding. Patient reports: new complaints, movement normal, contractions, no loss of fluid, no vaginal bleeding Objective - Vital Signs Vital Signs: Vital Signs - 12hr 12/31/16 12/31/16 12/31/16 21:37 21:42 21:47 Temperature Pulse Rate 96 H 93 H 84 Respiratory Rate Blood Pressure O2 Sat by Pulse 99 99 97 Oximetry 12/31/16 12/31/16 12/31/16 21:52 21:57 22:05 Temperature Pulse Rate 93 H 89 92 H Respiratory Rate Blood Pressure 108/61 O2 Sat by Pulse 97 96 98 Oximetry 12/31/16 12/31/16 12/31/16 22:10 22:15 22:20 Temperature Pulse Rate 93 H 89 95 H Respiratory Rate Blood Pressure O2 Sat by Pulse 97 98 99 Oximetry 12/31/16 12/31/16 12/31/16 22:25 22:30 22:35 Temperature Pulse Rate 87 99 H 95 H Respiratory Rate Blood Pressure O2 Sat by Pulse 97 98 97 Oximetry 12/31/16 12/31/16 12/31/16 22:40 22:45 22:50 Temperature Pulse Rate 90 94 H 98 H Respiratory Rate Blood Pressure O2 Sat by Pulse 97 98 98 Oximetry 12/31/16 12/31/16 12/31/16 22:55 22:57 23:00 Temperature Pulse Rate 96 H 103 H 94 H Respiratory Rate Blood Pressure 129/76 O2 Sat by Pulse 98 97 Oximetry 12/31/16 12/31/16 12/31/16 23:05 23:10 23:15 Temperature Pulse Rate 96 H 95 H 96 H Respiratory Rate Blood Pressure O2 Sat by Pulse 97 97 98 Oximetry 12/31/16 12/31/16 12/31/16 23:20 23:23 23:25 Temperature Pulse Rate 91 H 49 L 91 H Respiratory Rate Blood Pressure O2 Sat by Pulse 98 92 97 Oximetry 12/31/16 12/31/16 12/31/16 23:30 23:35 23:40 Temperature Pulse Rate 89 93 H 92 H Respiratory Rate Blood Pressure O2 Sat by Pulse 97 96 96 Oximetry 12/31/16 01/01/17 01/01/17 23:59 00:10 00:56 Temperature 98.5 F Pulse Rate 90 92 H Respiratory 20 Rate Blood Pressure 107/59 109/61 O2 Sat by Pulse Oximetry 01/01/17 01/01/17 01/01/17 01:56 03:22 03:37 Temperature Pulse Rate 97 H 93 H Respiratory 18 Rate Blood Pressure 102/54 115/75 O2 Sat by Pulse Oximetry 01/01/17 01/01/17 01/01/17 03:56 04:56 05:05 Temperature 98.2 F Pulse Rate 87 93 H Respiratory 16 Rate Blood Pressure 125/64 98/50 O2 Sat by Pulse Oximetry 01/01/17 01/01/17 01/01/17 05:56 06:42 06:47 Temperature Pulse Rate 98 H 99 H 95 H Respiratory Rate Blood Pressure 108/55 O2 Sat by Pulse 90 97 Oximetry 01/01/17 01/01/17 01/01/17 06:52 06:57 07:02 Temperature Pulse Rate 90 89 95 H Respiratory Rate Blood Pressure 115/64 O2 Sat by Pulse 97 97 97 Oximetry 01/01/17 01/01/17 01/01/17 07:07 07:12 07:17 Temperature Pulse Rate 84 84 87 Respiratory Rate Blood Pressure O2 Sat by Pulse 99 96 97 Oximetry 01/01/17 01/01/17 01/01/17 07:22 07:27 07:30 Temperature 98 F Pulse Rate 87 92 H Respiratory 16 Rate Blood Pressure O2 Sat by Pulse 96 97 Oximetry 01/01/17 01/01/17 01/01/17 07:32 07:33 07:44 Temperature Pulse Rate 93 H 84 Respiratory 16 Rate Blood Pressure O2 Sat by Pulse 97 97 Oximetry 01/01/17 01/01/17 01/01/17 07:49 07:54 07:59 Temperature Pulse Rate 90 90 88 Respiratory Rate Blood Pressure O2 Sat by Pulse 96 96 96 Oximetry 01/01/17 08:11 Temperature Pulse Rate 91 H Respiratory Rate Blood Pressure 118/63 O2 Sat by Pulse Oximetry - Exam Cardiovascular: Regular rate Lungs: Clear to auscultation Abdomen: Present: normal appearance, soft Uterus: Present: normal FHR: category 1 (x2) Uterine Contraction Monitor Mode: External Uterine Contraction Pattern: Irregular - Labs Labs: Abnormal Labs 12/31/16 12/31/16 12/31/16 00:30 05:36 12:36 WBC 12.2 H RDW 12.9 L Plt Count 137 L Monocytes % (Manual) 8.0 H Eosinophils % (Manual) 5.0 H Seg Neutrophils # Man 8.2 H Monocytes # (Manual) 1.0 H Eosinophils # (Manual) 0.6 H Magnesium 4.50 H 5.10 H 12/31/16 01/01/17 01/01/17 18:38 00:00 06:04 WBC RDW Plt Count Monocytes % (Manual) Eosinophils % (Manual) Seg Neutrophils # Man Monocytes # (Manual) Eosinophils # (Manual) Magnesium 5.20 H 4.90 H 5.00 H Laboratory Results - last 24 hr 12/31/16 12/31/16 12/31/16 00:30 12:36 16:15 Magnesium 5.10 H Urine Color Straw Urine Turbidity Clear Urine pH 6.0 Ur Specific [place] 1.005 Urine Protein <15 mg/dl Urine Glucose (UA) Neg Urine Ketones Neg Urine Blood Sm Urine Nitrite Neg Urine Bilirubin Neg Urine Urobilinogen < 2.0 Ur Leukocyte Esterase Tr Urine WBC (Auto) 2.0 Urine RBC (Auto) 1.0 RPR Nonreactive 12/31/16 01/01/17 01/01/17 18:38 00:00 06:04 Magnesium 5.20 H 4.90 H 5.00 H Urine Color Urine Turbidity Urine pH Ur Specific [place] Urine Protein Urine Glucose (UA) Urine Ketones Urine Blood Urine Nitrite Urine Bilirubin Urine Urobilinogen Ur Leukocyte Esterase Urine WBC (Auto) Urine RBC (Auto) RPR - Results US- obstetric: report reviewed (Twin A - BPP 8/8 Normal dopplers; Twin B - BPP 8/8 Normal dopplers)
[2017-01-01] MEDS: LACTATED RINGERS 1,000 ML IV SCH (10:45)
[2017-01-01] MEDS: PRENATAL VITAMIN PO SCH (10:45)
[2017-01-01] MEDS: MAGNESIUM SULFATE 40GM/1000ML 40 GM/1,000 ML BAG IV SCH (18:46)
[2017-01-01] MEDS ORDERED: AMBIEN PO PRN (23:15)
[2017-01-02] MEDS: SUBLIMAZE IV PRN ×4 (00:34→11:27)
[2017-01-02] MEDS: ALUM-MAG HYDROX-SIMETH 200-200-20MG/5ML PO PRN (01:45)
[2017-01-02] MEDS: LACTATED RINGERS 1,000 ML IV SCH ×2 (01:46→11:28)
--- NOTE | 2017-01-02 07:26 | Progress Note ---
Assessment and Plan A: 26-year-old at 31+4 weeks with contractions Issues 1. IUP at 31 3/7 weeks 2. DI/DI twin gestation 3. History of PTD times 3 4. Advanced cervical dilation of 4 cm 5. Shortened cervical length assessment noted- 2.7 cm 6. Non compliant with [facility] appointments -last seen 11/02/16 7. BREECH/BREECH presentation 8. MgSO4 D/C last night 9. Betamethasone completed x 48 hrs ago 10. Positive FFN 11. PLT 137K P) Appreciate [facility] consultation 1. Continue in patient management 2. Delivery SVE > 5 cm , regular ctx not responsive to tocolytic regimen , /maternal compromise - Patient Problems (1) 31 weeks gestation of Onset Date: 12/31/16 Current Visit: Yes Status: Acute (2) Twin gestation in third trimester Onset Date: 12/31/16 Current Visit: Yes Status: Acute Qualifiers: Multiple gestation type: dichorionic and diamniotic Qualified Code(s): O30.043 - Twin , dichorionic/diamniotic, third trimester (3) contractions Onset Date: 12/31/16 Current Visit: Yes Status: Acute (4) Limited care Current Visit: Yes Status: Acute Qualifiers: Trimester: T Subjective - Subjective Date of service: 01/02/17 Principal diagnosis: IUP @ 31 4/7 weeks; Twin gestation (Di/Di); PTL; Breech Interval history: Patient seen, complaining of generalized abdominal discomfort but no obvious contractions. She's currently off mag since last night. Patient examined last night and said to be 4 cm Review of monitor at this time shows no obvious contractions Patient reports: new complaints, movement normal, no loss of fluid, no vaginal bleeding, no contractions Objective - Vital Signs Vital Signs: Vital Signs - 12hr 01/01/17 01/01/17 01/01/17 19:39 19:40 21:50 Temperature 98.8 F Pulse Rate 86 96 H Pulse Rate [ From Monitor] Respiratory 18 20 Rate Blood Pressure 112/55 Blood Pressure 112/55 [Right Arm] O2 Sat by Pulse 97 Oximetry 01/02/17 01/02/17 01/02/17 00:25 00:27 01:21 Temperature 99.2 F Pulse Rate 83 81 Pulse Rate [ 83 From Monitor] Respiratory 20 Rate Blood Pressure 139/79 Blood Pressure 139/79 [Right Arm] O2 Sat by Pulse 94 Oximetry 01/02/17 01/02/17 01/02/17 01:22 01:26 01:27 Temperature Pulse Rate 91 H 86 Pulse Rate [ From Monitor] Respiratory Rate Blood Pressure Blood Pressure [Right Arm] O2 Sat by Pulse 94 92 93 Oximetry 01/02/17 01/02/17 01/02/17 01:32 01:37 01:38 Temperature Pulse Rate 87 84 82 Pulse Rate [ From Monitor] Respiratory Rate Blood Pressure Blood Pressure [Right Arm] O2 Sat by Pulse 94 95 94 Oximetry 01/02/17 01/02/17 01/02/17 01:42 01:47 01:49 Temperature Pulse Rate 78 109 H 95 H Pulse Rate [ From Monitor] Respiratory Rate Blood Pressure Blood Pressure [Right Arm] O2 Sat by Pulse 94 97 94 Oximetry 01/02/17 01/02/17 01/02/17 01:52 06:09 06:10 Temperature 98.8 F Pulse Rate 89 77 Pulse Rate [ 77 From Monitor] Respiratory 20 Rate Blood Pressure 92/53 Blood Pressure 92/53 [Right Arm] O2 Sat by Pulse 100 Oximetry - Exam Abdomen: Present: normal appearance, soft. Absent: distention, tenderness, guarding, rigidity - Labs Labs: Abnormal Labs 12/31/16 12/31/16 12/31/16 00:30 05:36 12:36 WBC 12.2 H RDW 12.9 L Plt Count 137 L Monocytes % (Manual) 8.0 H Eosinophils % (Manual) 5.0 H Seg Neutrophils # Man 8.2 H Monocytes # (Manual) 1.0 H Eosinophils # (Manual) 0.6 H Magnesium 4.50 H 5.10 H 12/31/16 01/01/17 01/01/17 18:38 00:00 06:04 WBC RDW Plt Count Monocytes % (Manual) Eosinophils % (Manual) Seg Neutrophils # Man Monocytes # (Manual) Eosinophils # (Manual) Magnesium 5.20 H 4.90 H 5.00 H 01/01/17 01/01/17 13:12 16:59 WBC RDW Plt Count Monocytes % (Manual) Eosinophils % (Manual) Seg Neutrophils # Man Monocytes # (Manual) Eosinophils # (Manual) Magnesium 4.80 H 4.70 H Laboratory Results - last 24 hr 01/01/17 01/01/17 13:12 16:59 Magnesium 4.80 H 4.70 H
[2017-01-02 08:14] VITALS: BP 116/58
[2017-01-02 08:47] LABS: Hematocrit 25.2 % (30.3-42.9); Hemoglobin 8.5 gm/dl (10.1-14.3); Mean Corpuscular HGB Conc 34 % (30-34); Mean Corpuscular Hemoglobin 30 pg (28-32); Mean Corpuscular Volume 89 fl (79-97); Platelet Count 107 K/mm3 (140-440); Red Blood Count 2.84 M/mm3 (3.65-5.03); Red Cell Distribution Width 12.8 % (13.2-15.2); White Blood Count 18.5 K/mm3 (4.5-11.0)
[2017-01-02] MEDS: PRENATAL VITAMIN PO SCH (09:11)
[2017-01-02] MEDS ORDERED: NACL 0.9% 500 ML 500 ML IV NR (09:30)
--- NOTE | 2017-01-02 10:07 | Event Note ---
Date: 01/02/17 Called to see patient wants to leave AMA. Patient lora on the monitor, but only mildly symptomatic. Charge Nurse examined patient and it appears external os is open but internal os closed, I followed the charge Nurse and re- examined the patient. It was very uncomfortable for her and required Darell position but it appears her internal os is closed. Plan at this point is to repeat ultrasound cervical length. Repeat CBC this morning shows a drop in her hemoglobin/HCT to 8.5/25.2 (was 10.5 /32.5 on 12/31/16) with platelets 105 (was 137), patient claims she has not been taking her vitamins. Plan at this point is to discuss with MFM about possible transfusion and then discharge home to follow up with her OB provider. Anemia w/u already ordered.
--- NOTE | 2017-01-02 12:11 | Ultrasound Report ---
LIMITED OB ULTRASOUND: Twin A Position: breech Heart Rate: 145 BPM Cervical length: 2.3 cm (Normal > 3 cm) Twin B Position: cephalic Heart Rate: 152 BPM Cervical length: 2.3 cm (Normal > 3 cm)
[2017-01-02 13:50] LABS: Iron 62 ug/dL (37-170); Total Iron Binding Capacity 450 mcg/dL (250-450)
--- NOTE | 2017-01-02 16:25 | Discharge Summary ---
Providers - Providers Date of Admission: 12/31/16 00:54 Date of discharge: 01/02/17 Attending physician: ADELINA GAINES 12/31/16 06:57 Consult to Physician [CONS] Routine Consulting Provider: ANA FROST Reason For Exam: Twins at [address] consult to:: NICU Notified:: AYANA Phone number called:: [phone] Was contact made?: Yes If yes, spoke with:: AYANA Time called:: 09:30 Comment:: NOTIFIED BY CHARGE NURSE 12/31/16 09:31 Consult to Physician [CONS] Urgent Consulting Provider: KATHLEEN DECKER Reason For Exam: IUP @ 31 weeks; Twins; PTL Place consult to:: [facility] Notified:: Office Phone number called:: [phone] Was contact made?: Yes If yes, spoke with:: Jaycee Time called:: 09:32 Primary care physician: ETL DEVELOPER Hospitalization Reason for admission: active labor, IUP - Discharge diagnosis: other (IUP at 31+4 wk with Di Di twins) Hospital course: 26-year-old at 31 weeks (via oral hx) presented with above complaints and issues, she is a drop-in patient with care at an outside facility. She complains care has been complicated by previous history of delivery 3. Gives a history of being seen by MFM, not on 17 . Patient also belatedly claims that she has not seen her doctor for 1-2 months now (?Dr Collette Stevenson at [facility]), she felt that they were not given her adequate care. This is complicated by twin gestation, patient claims they are diamniotic dichorionic. Infants were in breech presentation last week In triage, she was lora and was 3 cm dilated. Patient was admitted to the floor. She was started on magnesium sulfate and steroid course. MFM consultation was obtained and repeat growth scan was ordered Ultrasound: report reviewed (12/31/16 [facility] DI/DI twin gestation Cervical length of 2.7 cm Twin A: 31.5 wks + FHT of 145 Breech presentation EFW 1780 gm ( 55%) MVP 4.7 cm and Twin B: 30.4 weeks EFW 1629 gm ( 30%) BREECH presentation MVP 2.5 cm + FHT of 168 ) Doppler studies normal x 2 ISSUES: 1. IUP at 31.3 weeks 2. DI/DI twin gestation 3. History of PTD times 3 4. Advanced cervical dilation of 3 cm 5. Shortened cervical length assessment noted- 2.7 cm 6. Non compliant with [facility] appointments -last seen 11/02/16 7. BREECH/BREECH presentation 8. s/p BMZ # 2 (01/01/17) 9. History of with congenital stenosis 10. Positive FFN 11. PLT 137K HD # 3 (01/02/17): Called to see patient wants to leave AMA. Patient lora on the monitor, but only mildly symptomatic. Charge Nurse examined patient and it appears external OS is open but internal OS closed, I followed the charge Nurse and re- examined the patient. It was very uncomfortable for her and required Darell position but it appears her internal os is closed. Repeat cervical length was 2.3 cm. Repeat CBC this morning shows a drop in her hemoglobin/HCT to 8.5/25.2 (was 10.5 /32.5 on 12/31/16) with platelets 105 (was 137), patient claims she has not been taking her vitamins. Discussed all above with the patient including need to take her vitamins. Discharge patient with instructions to follow-up with her primary care soon GISELLE and with a MFM in 1 week. Discussed all above with MFM microsoft dynamics consultant Dr. Clay. Condition at discharge: Stable Disposition: DISCHARGED TO HOME OR SELFCARE - Discharge Diagnoses (1) 31 weeks gestation of Status: Acute (2) Twin gestation in third trimester Status: Acute Qualifiers: Multiple gestation type: dichorionic and diamniotic Qualified Code(s): O30.043 - Twin , dichorionic/diamniotic, third trimester (3) contractions Status: Acute (4) Limited care Status: Acute Qualifiers: Trimester: T (5) Anemia affecting in third trimester Status: Acute Plan - Discharge Medications Prescriptions: Pnv with Ca,No.72/Iron,Carb/FA [ Plus Iron Tablet] 1 each PO DAILY #30 tablet - Provider Discharge Summary Activity: no sex for 6 weeks, no heavy lifting 4 weeks, no strenuous exercise Diet: routine Instructions: other (Follow-up with your physician as recommended) Additional instructions: [] Smoking cessation referral if applicable(refer to patient education folder for contact #) [] Refer to [facility] Booklet Call your doctor immediately for: * Fever > 100.5 * Heavy vaginal bleeding ( >1 pad per hour) * Severe persistent headache * Shortness of breath * Reddened, hot, painful area to leg or breast * Drainage or odor from incision. * Keep incision clean and dry at all times and follow doctor's instructions regarding bathing/showering - Follow up plan Follow up: PRIMARY CARE, [Primary Care Provider] - 7 Days Forms: Work/School Excuse Out Patient
== END 2017-01-02 12:25 | disposition home or self-care (01) | DRG 781 ==
LOC: TRG 23:50 → APU 12-31 00:54 → LD 12-31 01:36
PROVIDERS: ADMIT Obstetrics & Gynecology Gynecology; ATTEND Obstetrics & Gynecology Gynecology
DX: O32.1XX1 Maternal care for breech presentation, fetus 1 (principal); O26.893 Other specified pregnancy related conditions, third trimester; O60.03 Preterm labor without delivery, third trimester; O32.1XX2 Maternal care for breech presentation, fetus 2; O30.043 Twin pregnancy, dichorionic/diamniotic, third trimester; Z3A.31 31 weeks gestation of pregnancy; O09.33 Supervision of pregnancy with insufficient antenatal care, third trimester; Z88.1 Allergy status to other antibiotic agents; Z88.0 Allergy status to penicillin; Z91.19 Patient's noncompliance with other medical treatment and regimen
CPT/HCPCS: 36415; 76815; 76816; 76817; 76819; 76820; 80307; 81001; 82607; 82728; 82731; 82747; 83550; 83735; 85007; 85025; 85027; 86592; 86706; 86762; 86803; 86850; 86900; 86901; 86920; 87086; 87591; 87806; J0702; J2405; J3010; J3105; J3475; J7120; J7121

== ENCOUNTER 2017-05-07 10:54 | Emergency (ER) | payer MEDICAID ==
[2017-05-07 11:34] VITALS: BP 119/82
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
[2017-05-07] MEDS ORDERED: MAGIC MOUTHWASH PO ONE (14:00)
[2017-05-07] MEDS ORDERED: ZITHROMAX PO ONE (14:21)
--- NOTE | 2017-05-07 18:15 | Emergency Department Report ---
Entered by FRANCESCO CHIN, acting as scribe for FREDY AVILA PA. ED ENT HPI - General Chief complaint: Sore Throat Stated complaint: THROAT PAIN Time Seen by Provider: 05/07/17 11:32 Source: patient Mode of arrival: Ambulatory Limitations: No Limitations - History of Present Illness Initial comments: 27 y/o female with no significant PMHx presents to the ED c/o a sore throat that began 1 day ago. Rates pain a 10/10 in severity, which she describes as aching, burning, and throbbing in quality. Aggravated with swallowing and cold therapy, and alleviated with nothing. Denies ear pain, fever, chills, nausea, vomiting, rhinorrhea, congestion, cough, chest pain, and SOB. Allergic to amoxicillin, butorphanol tartrate, and penicillins. MD complaint: sore throat Onset/Timin -: days(s) Location: throat Severity: severe Severity scale (0 -10): 10 Quality: burning, aching, other (throbbing) Consistency: constant Improves with: none Worsens with: swallowing, other (cold therapy) Associated Symptoms: pain with swallowing, sore throat. denies: fever, cough, gum swelling, toothache, tinnitus, hearing loss, discharge from ear, rhinorrhea - Related Data Previous Rx's Medication Instructions Recorded Last Taken Type Pnv with Ca,No.72/Iron,Carb/FA 1 each PO DAILY #30 tablet 01/02/17 Unknown Rx [ Plus Iron Tablet] Azithromycin [Zithromax TAB] 500 mg PO QDAY #6 tablet 05/07/17 Unknown Rx Ibuprofen [Motrin] 600 mg PO Q8H PRN #20 tablet 05/07/17 Unknown Rx Allergies Allergy/AdvReac Type Severity Reaction Status Date / Time amoxicillin Allergy Hives Verified 12/31/16 00:44 butorphanol tartrate Allergy blisters Verified 12/31/16 00:59 [From Stadol] Penicillins Allergy Hives Verified 12/31/16 00:44 ED Dental HPI - General Chief complaint: Sore Throat Stated complaint: THROAT PAIN Time Seen by Provider: 05/07/17 11:32 Source: patient Mode of arrival: Ambulatory Limitations: No Limitations - Related Data Previous Rx's Medication Instructions Recorded Last Taken Type Pnv with Ca,No.72/Iron,Carb/FA 1 each PO DAILY #30 tablet 01/02/17 Unknown Rx [ Plus Iron Tablet] Azithromycin [Zithromax TAB] 500 mg PO QDAY #6 tablet 05/07/17 Unknown Rx Ibuprofen [Motrin] 600 mg PO Q8H PRN #20 tablet 05/07/17 Unknown Rx Allergies Allergy/AdvReac Type Severity Reaction Status Date / Time amoxicillin Allergy Hives Verified 12/31/16 00:44 butorphanol tartrate Allergy blisters Verified 12/31/16 00:59 [From Stadol] Penicillins Allergy Hives Verified 12/31/16 00:44 ED Review of Systems Comment: All other systems reviewed and negative Constitutional: denies: chills, fever Eyes: denies: eye pain, eye discharge, vision change ENT: throat pain. denies: ear pain, dental pain, hearing loss, epistaxis, congestion Respiratory: denies: cough, orthopnea, shortness of breath, SOB with exertion, SOB at rest, stridor, wheezing Cardiovascular: denies: chest pain, palpitations, dyspnea on exertion, orthopnea , edema, syncope, paroxysmal nocturnal dyspnea Endocrine: no symptoms reported Gastrointestinal: denies: abdominal pain, nausea, vomiting, diarrhea Genitourinary: denies: urgency, dysuria, discharge Musculoskeletal: denies: back pain, joint swelling, arthralgia, myalgia Skin: denies: rash, lesions Neurological: denies: headache, weakness, numbness, paresthesias, confusion, abnormal gait, vertigo Psychiatric: denies: anxiety, depression Hematological/Lymphatic: denies: easy bleeding, easy bruising ED Past Medical Hx - Past Medical History Previous Medical History?: No Hx Hypertension: No Hx Congestive Heart Failure: No Hx Diabetes: No Hx Deep Vein Thrombosis: No Hx Renal Disease: No Hx Sickle Cell Disease: No Hx Seizures: No Hx Asthma: No Hx COPD: No Hx HIV: No - Surgical History Past Surgical History?: Yes Additional Surgical History: c/s - Family History Family history: no significant - Social History Smoking Status: Current Every Day Smoker Substance Use Type: None - Medications Home Medications: Home Medications Medication Instructions Recorded Confirmed Last Taken Type Pnv with Ca,No.72/Iron,Carb/FA 1 each PO DAILY #30 tablet 01/02/17 Unknown Rx [ Plus Iron Tablet] Azithromycin [Zithromax TAB] 500 mg PO QDAY #6 tablet 05/07/17 Unknown Rx Ibuprofen [Motrin] 600 mg PO Q8H PRN #20 tablet 05/07/17 Unknown Rx ED Physical Exam - General Limitations: No Limitations General appearance: alert, in no apparent distress - Head Head exam: Present: atraumatic, normocephalic - Eye Eye exam: Present: normal appearance, PERRL, EOMI Pupils: Present: normal accommodation - ENT ENT exam: Present: mucous membranes moist, TM's normal bilaterally, normal external ear exam. Absent: normal exam, normal orophraynx - Expanded ENT Exam Expanded Ear exam: Present: normal external inspection Mouth exam: Present: normal external inspection, tongue normal. Absent: drooling, trismus, muffled voice, tongue elevation, laceration Teeth exam: Present: normal inspection Throat exam: Positive: tonsillomegaly (mildly enlarged), tonsillar exudate (LT tonsillar exudates). Negative: normal inspection, tonsillar erythema, R peritonsillar mass, L peritonsillar mass - Neck Neck exam: Present: full ROM, lymphadenopathy (bilateral anterior cervical lymphadenopathy present). Absent: normal inspection, tenderness, meningismus, thyromegaly - Respiratory Respiratory exam: Present: normal lung sounds bilaterally. Absent: respiratory distress, wheezes, rales, rhonchi, stridor - Cardiovascular Cardiovascular Exam: Present: regular rate, normal rhythm, normal heart sounds. Absent: systolic murmur, diastolic murmur, rubs, gallop - GI/Abdominal GI/Abdominal exam: Present: soft, normal bowel sounds. Absent: distended - Extremities Exam Extremities exam: Present: normal inspection, full ROM - Back Exam Back exam: Present: normal inspection, full ROM - Neurological Exam Neurological exam: Present: alert, oriented X3, normal gait - Psychiatric Psychiatric exam: Present: normal affect, normal mood - Skin Skin exam: Present: warm, dry, intact. Absent: rash ED Course Vital Signs 05/07/17 11:31 Temperature 99.5 F Pulse Rate 106 H Respiratory 20 Rate Blood Pressure 119/82 O2 Sat by Pulse 100 Oximetry ED Medical Decision Making - Medical Decision Making 27 year-old female presents with a strep pharyngitis ED course: Patient received a rapid strep test. Patient was given Magic Mouthwash and 1 g of azithromycin. Step test was positive. Vital signs stable patient is in no acute or respiratory distress. Discussed findings with patient about diagnoses. Discussed treatment in ED with patient Discussed with patient to follow up with PCP as referred, and to return to the ED if symptoms return or worsen. Patient states understanding and will follow instructions. Pt verbally states understanding and will comply to follow up. ED Disposition Clinical Impression: Strep pharyngitis Disposition: DC- TO HOME OR SELFCARE Is pt being admited?: No Does the pt Need Aspirin: No Condition: Stable Instructions: Strep Throat (ED), Tonsillitis (ED) Prescriptions: Azithromycin [Zithromax TAB] 500 mg PO QDAY #6 tablet Ibuprofen [Motrin] 600 mg PO Q8H PRN #20 tablet PRN Reason: Pain Referrals: PRIMARY CARE,MD [Primary Care Provider] - 3-[address] [facility] [Outside] - 3-5 Days [facility] [Outside] - 3-[address] [facility] [Outside] - 3-5 Days Forms: Accompanied Note, Work/School Release Form(ED) Time of Disposition: 14:22 This documentation as recorded by the GIUSEPPE arreguin JASMINE,accurately reflects the service I personally performed and the decisions made by ,FREDY AVILA PA.
== END 2017-05-07 14:32 | disposition home or self-care (01) ==
LOC: ED 10:54
DX: J02.0 Streptococcal pharyngitis (principal); F17.210 Nicotine dependence, cigarettes, uncomplicated; Z88.1 Allergy status to other antibiotic agents; Z88.0 Allergy status to penicillin; Z88.8 Allergy status to other drugs, medicaments and biological substances
CPT/HCPCS: 87430; 99282

== ENCOUNTER 2017-05-11 17:19 | Emergency (ER) | payer MEDICAID ==
[2017-05-11 17:26] VITALS: BP 134/97
== END 2017-05-11 22:14 | disposition left against medical advice (07) ==
LOC: ED 17:19
DX: M54.2 Cervicalgia (principal); Z53.21 Procedure and treatment not carried out due to patient leaving prior to being seen by health care provider

== ENCOUNTER 2018-02-11 20:35 | Emergency (ER) | payer MEDICAID ==
[2018-02-11 21:07] VITALS: BP 109/74
== END 2018-02-11 21:35 | disposition left against medical advice (07) ==
LOC: ED 20:35
DX: O26.891 Other specified pregnancy related conditions, first trimester (principal); F17.200 Nicotine dependence, unspecified, uncomplicated; Z3A.14 14 weeks gestation of pregnancy; Z88.0 Allergy status to penicillin; Z88.1 Allergy status to other antibiotic agents; Z53.21 Procedure and treatment not carried out due to patient leaving prior to being seen by health care provider

== ENCOUNTER 2018-11-12 10:38 | Emergency (ER) | payer MEDICAID ==
[2018-11-12 11:04] LABS: Hematocrit 38.9 % (30.3-42.9); Hemoglobin 13.4 gm/dl (10.1-14.3); Mean Corpuscular HGB Conc 34 % (30-34); Mean Corpuscular Volume 89 fl (79-97); Platelet Count 187 K/mm3 (140-440); Red Blood Count 4.35 M/mm3 (3.65-5.03); Red Cell Distribution Width 14.5 % (13.2-15.2)
[2018-11-12 11:09] VITALS: BP 131/83
[2018-11-12 11:30] LABS: Alanine Aminotransferase 9 units/L (7-56); Albumin 4.2 g/dL (3.9-5); BUN/Creatinine Ratio 9; Blood Urea Nitrogen 6 mg/dL (7-17); Calcium 9.3 mg/dL (8.4-10.2); Hemolysis Index 26
--- NOTE | 2018-11-12 11:41 | Emergency Department Report ---
ED Female HPI - General Chief complaint: Vaginal Bleeding Stated complaint: VAGINAL BLEEDING [id number] Time Seen by Provider: 11/12/18 11:19 Source: patient Mode of arrival: Ambulatory Limitations: No Limitations - History of Present Illness Initial comments: Patient is a 28-year-old female who is presenting with heavy vaginal bleeding that started 2 days ago. Patient states that she is changing her tampon approximately once every hour. Patient has had some clots that she's passed. The patient was concerned because this is the second episode bleeding she's had within 1 month. Patient has a history of endometriosis and has had abnormal bleeding in the past but never 2 periods within 1 month. Patient has not taken a test at home. Patient denies any nausea vomiting abdominal pain lightheadedness or near syncope. - Related Data Previous Rx's Medication Instructions Recorded Last Taken Type Pnv,Calcium 72/Iron,Carb/Folic 1 each PO DAILY #30 tablet 01/02/17 Unknown Rx [ Plus Iron Tablet] Azithromycin [Zithromax TAB] 500 mg PO QDAY #6 tablet 05/07/17 Unknown Rx Ibuprofen [Motrin] 600 mg PO Q8H PRN #20 tablet 05/07/17 Unknown Rx medroxyPROGESTERone ACETATE 10 mg PO DAILY #5 tablet 11/12/18 Unknown Rx [Provera] Allergies Allergy/AdvReac Type Severity Reaction Status Date / Time amoxicillin Allergy Hives Verified 11/12/18 10:40 butorphanol tartrate Allergy blisters Verified 11/12/18 10:40 [From Stadol] Penicillins Allergy Hives Verified 11/12/18 10:40 ED Review of Systems ROS: Stated complaint: VAGINAL BLEEDING [id number] Other details as noted in HPI Comment: All other systems reviewed and negative ED Past Medical Hx - Past Medical History Hx Hypertension: No Hx Congestive Heart Failure: No Hx Diabetes: No Hx Deep Vein Thrombosis: No Hx Renal Disease: No Hx Sickle Cell Disease: No Hx Seizures: No Hx Asthma: No Hx COPD: No Hx HIV: No Additional medical history: endometriosis - Surgical History Additional Surgical History: c/s, molar - Social History Smoking Status: Current Every Day Smoker Substance Use Type: None - Medications Home Medications: Home Medications Medication Instructions Recorded Confirmed Last Taken Type Pnv,Calcium 72/Iron,Carb/Folic 1 each PO DAILY #30 tablet 01/02/17 Unknown Rx [ Plus Iron Tablet] Azithromycin [Zithromax TAB] 500 mg PO QDAY #6 tablet 05/07/17 Unknown Rx Ibuprofen [Motrin] 600 mg PO Q8H PRN #20 tablet 05/07/17 Unknown Rx medroxyPROGESTERone ACETATE 10 mg PO DAILY #5 tablet 11/12/18 Unknown Rx [Provera] ED Physical Exam - General Limitations: No Limitations General appearance: alert, in no apparent distress - Head Head exam: Present: atraumatic, normocephalic - Eye Eye exam: Present: normal appearance - ENT ENT exam: Present: mucous membranes moist - Neck Neck exam: Present: normal inspection - Respiratory Respiratory exam: Present: normal lung sounds bilaterally. Absent: respiratory distress, wheezes, rales, rhonchi - Cardiovascular Cardiovascular Exam: Present: regular rate, normal rhythm. Absent: systolic murmur, diastolic murmur, rubs, gallop - GI/Abdominal GI/Abdominal exam: Present: soft, normal bowel sounds. Absent: distended, tenderness, guarding, rebound - Extremities Exam Extremities exam: Present: normal inspection - Back Exam Back exam: Present: normal inspection - Neurological Exam Neurological exam: Present: alert, oriented X3 - Psychiatric Psychiatric exam: Present: normal affect, normal mood - Skin Skin exam: Present: warm, dry, intact, normal color. Absent: rash ED Course Vital Signs 11/12/18 11/12/18 11:00 11:18 Temperature 98.1 F Pulse Rate 74 Respiratory 18 16 Rate Blood Pressure 131/83 O2 Sat by Pulse 100 Oximetry ED Medical Decision Making - Lab Data Result diagrams: 11/12/18 10:53 11/12/18 10:53 Lab Results 11/12/18 11/12/18 11/12/18 Range/Units 10:53 10:53 10:53 WBC 7.2 (4.5-11.0) K/mm3 RBC 4.35 (3.65-5.03) M/mm3 Hgb 13.4 (10.1-14.3) gm/dl Hct 38.9 (30.3-42.9) % MCV 89 (79-97) fl MCH 31 (28-32) pg MCHC 34 (30-34) % RDW 14.5 (13.2-15.2) % Plt Count 187 (140-440) K/mm3 Sodium 141 (137-145) mmol/L Potassium 4.3 (3.6-5.0) mmol/L Chloride 103.8 (98-107) mmol/L Carbon Dioxide 25 (22-30) mmol/L Anion Gap 17 mmol/L BUN 6 L (7-17) mg/dL Creatinine 0.7 (0.7-1.2) mg/dL Estimated GFR > 60 ml/min BUN/Creatinine Ratio 9 % Glucose 78 (65-100) mg/dL Calcium 9.3 (8.4-10.2) mg/dL Total Bilirubin 0.40 (0.1-1.2) mg/dL AST 17 (5-40) units/L ALT 9 (7-56) units/L Alkaline Phosphatase 49 (35-129) units/L Total Protein 7.0 (6.3-8.2) g/dL Albumin 4.2 (3.9-5) g/dL Albumin/Globulin Ratio 1.5 % HCG, Quant < 2 (0-4) mIU/mL - Medical Decision Making Patient is not anemic at this time despite her heavy bleeding. Patient's test was negative. Patient will be started on Provera and be discharged home with follow-up with DOCUMENT EXAMINER. Critical care attestation.: If time is entered above; I have spent that time in minutes in the direct care of this critically ill patient, excluding procedure time. ED Disposition Clinical Impression: DUB (dysfunctional uterine bleeding) Disposition: - TO HOME OR SELFCARE Is pt being admited?: No Does the pt Need Aspirin: No Condition: Stable Instructions: Dysfunctional Uterine Bleeding (ED) Prescriptions: medroxyPROGESTERone ACETATE [Provera] 10 mg PO DAILY #5 tablet Referrals: ROGER ALICIA MD [Staff Physician] - 3-5 Days Time of Disposition: 12:38
== END 2018-11-12 12:46 | disposition home or self-care (01) ==
LOC: ED 10:38
DX: N93.8 Other specified abnormal uterine and vaginal bleeding (principal); F17.200 Nicotine dependence, unspecified, uncomplicated; Z88.1 Allergy status to other antibiotic agents; Z88.0 Allergy status to penicillin; Z88.8 Allergy status to other drugs, medicaments and biological substances
CPT/HCPCS: 36415; 80053; 84702; 85027